=== PATIENT | female | born 1955 | race Caucasian/White ===

== ENCOUNTER → 2018-10-30 | Outpatient (CLI) | payer BC | END | disposition home or self-care (01) | LOC: CT 08:06 | PROVIDERS: ATTEND Internal Medicine Geriatric Medicine | DX: M85.88 Other specified disorders of bone density and structure, other site (principal); R22.0 Localized swelling, mass and lump, head; H70.91 Unspecified mastoiditis, right ear; M25.78 Osteophyte, vertebrae; M47.812 Spondylosis without myelopathy or radiculopathy, cervical region; M81.0 Age-related osteoporosis without current pathological fracture | CPT/HCPCS: 70486; 70490; 77080 ==

== ENCOUNTER → 2018-11-05 | Outpatient (CLI) | payer BC ==
[2018-11-05 09:07] LABS: EOSINOPHILS % 1.7 % (0.0-5.0); LYMPHOCYTES % 45.1 % (20.0-50.0); MEAN CORPUSCULAR VOLUME 90.8 fL (81.0-99.0); MEAN PLATELET VOLUME 9.4 fl (7.4-10.4); MONOCYTES % 5.5 % (2.0-8.0); NEUTROPHILS % 46.7 % (40.0-76.0); PLATELET 236 x1000/uL (130-400); RED BLOOD CELL COUNT 4.85 mill/uL (4.2-5.4); RED CELL DISTRIBUTION WIDTH 13.5 % (11.6-14.6)
[2018-11-05 09:21] LABS: CLARITY URINE CLEAR (CLEAR); COLOR URINE YELLOW (YELLOW); KETONES URINE NEGATIVE (NEGATIVE); LEUKOCYTE ESTERASE URINE NEGATIVE (NEGATIVE); NITRITE URINE NEGATIVE (NEGATIVE); OCCULT BLOOD URINE TRACE (NEGATIVE); PROTEIN URINE TRACE (NEGATIVE); SPECIFIC GRAVITY URINE 1.019 (1.005-1.030); UROBILINOGEN URINE 0.2 E.U./dL (0.2-1.0)
[2018-11-05 09:24] LABS: CHLORIDE 106 mEq/L (98-107)
[2018-11-05 09:32] LABS: TOTAL IRON BINDING CAPACITY 319 ug/dL (250-450)
[2018-11-05 09:33] LABS: LDL CHOLESTEROL 187 mg/dL (5-100)
[2018-11-05 09:34] LABS: HDL CHOLESTEROL 53 mg/dL (40-59)
[2018-11-05 10:21] LABS: VITAMIN B12 SERUM 782 pg/mL (211-911)
== END | disposition home or self-care (01) ==
LOC: LAB 08:30
DX: N39.0 Urinary tract infection, site not specified (principal)
CPT/HCPCS: 36415; 80061; 82306; 82607; 83036; 83540; 83550; 84443; 86592

== ENCOUNTER → 2019-04-22 | Outpatient (CLI) | payer BC | END | disposition home or self-care (01) | LOC: LAB 09:57 | PROVIDERS: ATTEND Internal Medicine Geriatric Medicine | DX: E78.5 Hyperlipidemia, unspecified (principal); R73.09 Other abnormal glucose | CPT/HCPCS: 36415; 80061; 83036 ==

== ENCOUNTER → 2019-06-16 | Outpatient (CLI) | payer BC | END | disposition home or self-care (01) | LOC: MAMMO 08:48 | PROVIDERS: ATTEND Internal Medicine Geriatric Medicine | DX: Z12.31 Encounter for screening mammogram for malignant neoplasm of breast (principal) | CPT/HCPCS: 77067 ==

== ENCOUNTER → 2020-10-19 | Outpatient (CLI) | payer BC | END | disposition home or self-care (01) | LOC: LAB 10:24 | PROVIDERS: ATTEND Internal Medicine Geriatric Medicine | DX: Z00.01 Encounter for general adult medical examination with abnormal findings (principal); Z13.29 Encounter for screening for other suspected endocrine disorder; I10 Essential (primary) hypertension; N39.0 Urinary tract infection, site not specified; Z20.822 Contact with and (suspected) exposure to COVID-19 | CPT/HCPCS: 87426 ==

== ENCOUNTER → 2020-10-20 | Outpatient (CLI) | payer BC | END | disposition home or self-care (01) | LOC: MAMMO 12:16 | PROVIDERS: ATTEND Internal Medicine Geriatric Medicine | DX: Z12.31 Encounter for screening mammogram for malignant neoplasm of breast (principal) | CPT/HCPCS: 76536; 77063; 77067 ==

== ENCOUNTER → 2020-11-15 | Outpatient (CLI) | payer BC ==
[2020-11-15 08:58] LABS: EOSINOPHILS % 2.1 % (0.0-5.0); HEMATOCRIT. 39.9 % (36.0-48.0); LYMPHOCYTES % 43.5 % (20.0-50.0); MEAN CORPUSCULAR HEMOGLOBIN 31.7 pg (28.0-32.0); MEAN CORPUSCULAR VOLUME 90.6 fL (81.0-99.0); MEAN PLATELET VOLUME 8.8 fl (7.4-10.4); MONOCYTES % 4.9 % (2.0-8.0); NEUTROPHILS % 48.5 % (40.0-76.0); PLATELET 272 x1000/uL (130-400); RED CELL DISTRIBUTION WIDTH 13.7 % (11.6-14.6)
[2020-11-15 09:00] LABS: CLARITY URINE CLEAR (CLEAR); COLOR URINE YELLOW (YELLOW); KETONES URINE NEGATIVE (NEGATIVE); LEUKOCYTE ESTERASE URINE NEGATIVE (NEGATIVE); NITRITE URINE NEGATIVE (NEGATIVE); OCCULT BLOOD URINE TRACE (NEGATIVE); PROTEIN URINE 2+ (NEGATIVE); SPECIFIC GRAVITY URINE 1.016 (1.005-1.030); UROBILINOGEN URINE 0.2 E.U./dL (0.2-1.0)
[2020-11-15 09:07] LABS: CHLORIDE 105 mEq/L (98-107)
[2020-11-15 09:14] LABS: LDL CHOLESTEROL 184 mg/dL (5-100); TOTAL IRON BINDING CAPACITY 336 ug/dL (250-450)
[2020-11-15 09:15] LABS: HDL CHOLESTEROL 57 mg/dL (40-59)
[2020-11-15 09:17] LABS: T4 FREE 1.13 ng/dL (0.76-1.46)
[2020-11-15 09:42] LABS: VITAMIN B12 SERUM 1077 pg/mL (211-911)
[2020-11-16 04:10] LABS: VITAMIN D 25-OH 20.9 ng/mL (30.0-100.0)
== END | disposition home or self-care (01) ==
LOC: LAB 06:47
PROVIDERS: ATTEND Internal Medicine Geriatric Medicine
DX: Z00.01 Encounter for general adult medical examination with abnormal findings (principal); I10 Essential (primary) hypertension; N39.0 Urinary tract infection, site not specified; Z13.29 Encounter for screening for other suspected endocrine disorder
CPT/HCPCS: 36415; 80053; 80061; 81003; 82306; 82607; 83036; 83540; 83550; 84436; 84439; 84443; 84479; 85025; 86592

== ENCOUNTER → 2021-05-11 | Outpatient (CLI) | payer BC ==
[2021-05-11 10:18] LABS: CHLORIDE 104 mEq/L (98-107)
[2021-05-11 10:25] LABS: LDL CHOLESTEROL 184 mg/dL (5-100)
[2021-05-11 10:26] LABS: HDL CHOLESTEROL 50 mg/dL (40-59)
== END | disposition home or self-care (01) ==
LOC: LAB 09:18
PROVIDERS: ATTEND Internal Medicine Geriatric Medicine
DX: E78.5 Hyperlipidemia, unspecified (principal); R73.03 Prediabetes
CPT/HCPCS: 36415; 80048; 80061; 83036

== ENCOUNTER → 2021-06-22 | Outpatient (CLI) | payer BC | END | disposition home or self-care (01) | LOC: CT 08:06 | PROVIDERS: ATTEND Internal Medicine Geriatric Medicine | DX: K11.8 Other diseases of salivary glands (principal); R59.0 Localized enlarged lymph nodes; D37.030 Neoplasm of uncertain behavior of the parotid salivary glands | CPT/HCPCS: 70486 ==

== ENCOUNTER → 2021-06-30 | Outpatient (CLI) | payer BC ==
[2021-06-30 14:23] LABS: BASOPHILS % 0.7 % (0.0-2.0); EOSINOPHILS % 1.6 % (0.0-5.0); HEMATOCRIT. 40.6 % (36.0-48.0); HEMOGLOBIN. 13.5 g/dL (12.0-16.0); LYMPHOCYTES % 50.4 % (20.0-50.0); MEAN CORPUSCULAR HEMOGLOBIN 30.2 pg (28.0-32.0); MEAN CORPUSCULAR VOLUME 90.6 fL (81.0-99.0); MEAN PLATELET VOLUME 8.5 fl (7.4-10.4); MONOCYTES % 6.8 % (2.0-8.0); NEUTROPHILS % 40.5 % (40.0-76.0); PLATELET 252 x1000/uL (130-400); RED BLOOD CELL COUNT 4.48 mill/uL (4.2-5.4); RED CELL DISTRIBUTION WIDTH 13.6 % (11.6-14.6)
[2021-06-30 14:34] LABS: INR 0.9; PARTIAL THROMBOPLASTIN TIME 26.2 sec (23.4-31.0); PROTHROMBIN TIME 10.2 sec (9.6-11.0)
[2021-06-30 15:00] LABS: CHLORIDE 107 mEq/L (98-107)
== END | disposition home or self-care (01) ==
LOC: LAB 13:52
PROVIDERS: ATTEND Internal Medicine Geriatric Medicine
DX: D11.0 Benign neoplasm of parotid gland (principal); I10 Essential (primary) hypertension
CPT/HCPCS: 36415; 80048; 85025

== ENCOUNTER → 2021-07-20 | Outpatient (CLI) | payer BC ==
[~2021-07-20] MED LIST: LIDOCAINE HCL 1% 20ML VIAL (Pyxis) INJ ONE; SODIUM BICARBONATE 4% (2.4MEQ) 5ML VIAL IV ONE
== END | disposition home or self-care (01) ==
LOC: RAD 11:02
PROVIDERS: ATTEND Internal Medicine Geriatric Medicine
DX: D11.0 Benign neoplasm of parotid gland (principal); I10 Essential (primary) hypertension; Z79.899 Other long term (current) drug therapy; Z20.822 Contact with and (suspected) exposure to COVID-19
CPT/HCPCS: 10005; 87426; 88172; 88173; J3490; Z7610

== ENCOUNTER → 2021-10-01 | Outpatient (CLI) | payer BC ==
[2021-10-01 08:29] LABS: CHLORIDE 107 mEq/L (98-107)
[2021-10-01 08:37] LABS: LDL CHOLESTEROL 160 mg/dL (5-100)
[2021-10-01 08:38] LABS: HDL CHOLESTEROL 56 mg/dL (40-59)
== END | disposition home or self-care (01) ==
LOC: LAB 07:56
PROVIDERS: ATTEND Internal Medicine Geriatric Medicine
DX: R73.03 Prediabetes (principal); E78.5 Hyperlipidemia, unspecified
CPT/HCPCS: 36415; 80053; 80061; 83036

== ENCOUNTER → 2022-02-24 | Outpatient (CLI) | payer BC ==
[2022-02-24 07:32] LABS: CHLORIDE 106 mEq/L (98-107)
[2022-02-24 07:39] LABS: HDL CHOLESTEROL 52 mg/dL (40-59); LDL CHOLESTEROL 109 mg/dL (5-100)
== END | disposition home or self-care (01) ==
LOC: LAB 06:37
PROVIDERS: ATTEND Internal Medicine Geriatric Medicine
DX: Z00.00 Encounter for general adult medical examination without abnormal findings (principal)
CPT/HCPCS: 36415; 80053; 80061; 83036

== ENCOUNTER → 2022-12-18 | Outpatient (CLI) | payer BC ==
[2022-12-18 07:51] LABS: CHLORIDE 107 mEq/L (98-107)
[2022-12-18 08:03] LABS: HDL CHOLESTEROL 62 mg/dL (40-59); LDL CHOLESTEROL 115 mg/dL (5-100)
== END | disposition home or self-care (01) ==
LOC: LAB 06:51
PROVIDERS: ATTEND Internal Medicine Geriatric Medicine
DX: E11.69 Type 2 diabetes mellitus with other specified complication (principal); I10 Essential (primary) hypertension
CPT/HCPCS: 36415; 80053; 80061; 83036

== ENCOUNTER → 2023-10-11 | Outpatient (CLI) | payer BC | END | disposition home or self-care (01) | LOC: MAMMO 13:14 | PROVIDERS: ATTEND Internal Medicine Geriatric Medicine | DX: Z12.31 Encounter for screening mammogram for malignant neoplasm of breast (principal); Z13.820 Encounter for screening for osteoporosis; Z00.01 Encounter for general adult medical examination with abnormal findings; N39.0 Urinary tract infection, site not specified; E11.69 Type 2 diabetes mellitus with other specified complication; M81.0 Age-related osteoporosis without current pathological fracture | CPT/HCPCS: 77063; 77067; 77080 ==

== ENCOUNTER → 2023-12-27 | Outpatient (CLI) | payer BC ==
[2023-12-27 12:21] LABS: CHLORIDE 105 mEq/L (98-107); POTASSIUM 4.1 mEq/L (3.5-5.1); SODIUM 140 mEq/L (136-145)
[2023-12-27 12:22] LABS: CALCIUM 9.8 mg/dL (8.7-10.4); CARBON DIOXIDE 30 mEq/L (21-32)
[2023-12-27 12:27] LABS: CREATININE 0.7 mg/dL (0.6-1.0); GLUCOSE 94 mg/dL (70-105); TRIGLYCERIDE 167 mg/dL (0-150); UREA NITROGEN BLOOD 12 mg/dL (9-23)
[2023-12-27 12:28] LABS: LDL CHOLESTEROL 115 mg/dL (5-100)
[2023-12-27 12:29] LABS: ALANINE AMINOTRANSFERASE 16 IU/L (10-49); ALBUMIN 4.3 g/dL (3.2-4.8); ASPARTATE AMINOTRANSFERASE 24 IU/L (<34); BILIRUBIN TOTAL 1.2 mg/dL (0.1-1.0); CHOLESTEROL 196 mg/dL (<200); HDL CHOLESTEROL 53 mg/dL (>65); PROTEIN TOTAL 8.1 g/dL (6.0-8.3)
== END | disposition home or self-care (01) ==
LOC: LAB 12-21 10:12
PROVIDERS: ATTEND Internal Medicine Geriatric Medicine
DX: E11.69 Type 2 diabetes mellitus with other specified complication (principal)
CPT/HCPCS: 36415; 80053; 80061; 83036

== ENCOUNTER → 2023-12-27 | Outpatient (CLI) | payer BC | END | disposition home or self-care (01) | LOC: PVL 09:41 | PROVIDERS: ATTEND Internal Medicine Geriatric Medicine | DX: I65.23 Occlusion and stenosis of bilateral carotid arteries (principal); I73.9 Peripheral vascular disease, unspecified; E11.9 Type 2 diabetes mellitus without complications | CPT/HCPCS: 93880; 93923 ==

== ENCOUNTER → 2024-04-05 | Outpatient (CLI) | payer BC ==
[2024-04-05 10:04] LABS: EOSINOPHILS % 2.3 % (0.0-5.0); HEMATOCRIT. 44.3 % (36.0-48.0); HEMOGLOBIN. 14.8 g/dL (12.0-16.0); LYMPHOCYTES % 38.1 % (20.0-50.0); MEAN CORPUSCULAR HEMOGLOBIN 30.6 pg (28.0-32.0); MEAN CORPUSCULAR HGB CONC 33.4 g/dL (31.0-37.0); MEAN CORPUSCULAR VOLUME 91.6 fL (81.0-99.0); MEAN PLATELET VOLUME 8.6 fl (7.4-10.4); MONOCYTES % 7.6 % (2.0-8.0); PLATELET 289 x1000/uL (130-400); RED BLOOD CELL COUNT 4.84 mill/uL (4.2-5.4); RED CELL DISTRIBUTION WIDTH 14.6 % (11.6-14.6); WHITE BLOOD COUNT 10.7 x1000/uL (4.5-11.0)
[2024-04-05 10:05] LABS: CLARITY URINE CLEAR (CLEAR); COLOR URINE YELLOW (YELLOW); GLUCOSE URINE NEGATIVE (NEGATIVE); KETONES URINE NEGATIVE (NEGATIVE); LEUKOCYTE ESTERASE URINE NEGATIVE (NEGATIVE); NITRITE URINE NEGATIVE (NEGATIVE); OCCULT BLOOD URINE 2+ (NEGATIVE); PROTEIN URINE 2+ (NEGATIVE)
[2024-04-05 10:14] LABS: CHLORIDE 104 mEq/L (98-107); POTASSIUM 4.4 mEq/L (3.5-5.1); SODIUM 139 mEq/L (136-145)
[2024-04-05 10:15] LABS: CALCIUM 9.5 mg/dL (8.7-10.4); CARBON DIOXIDE 29 mEq/L (21-32)
[2024-04-05 10:19] LABS: BACTERIA URINE 1+; SQUAMOUS EPITHELIAL CELL URINE FEW /lpf (RARE/1+); WBC URINE 0-2 /hpf (0-2); YEAST URINE NONE SEEN
[2024-04-05 10:20] LABS: CREATININE 0.9 mg/dL (0.6-1.0); GLUCOSE 107 mg/dL (70-105); TRIGLYCERIDE 147 mg/dL (0-150); UREA NITROGEN BLOOD 15 mg/dL (9-23)
[2024-04-05 10:21] LABS: ALANINE AMINOTRANSFERASE 54 IU/L (10-49); ASPARTATE AMINOTRANSFERASE 38 IU/L (<34); LDL CHOLESTEROL 186 mg/dL (5-100)
[2024-04-05 10:22] LABS: ALBUMIN 4.5 g/dL (3.2-4.8); CHOLESTEROL 250 mg/dL (<200); HDL CHOLESTEROL 56 mg/dL (>65); PROTEIN TOTAL 8.5 g/dL (6.0-8.3)
[2024-04-05 10:25] LABS: THYROID STIMULATING HORMONE 1.94 uIU/mL (0.55-4.78)
== END | disposition home or self-care (01) ==
LOC: LAB 09:18 → EDSTATUS 13:19
PROVIDERS: ATTEND Internal Medicine Geriatric Medicine
DX: I10 Essential (primary) hypertension (principal); E11.69 Type 2 diabetes mellitus with other specified complication
CPT/HCPCS: 36415; 80053; 80061; 81003; 83036; 84443; 85025; 99281

== ENCOUNTER → 2024-04-09 | Outpatient (CLI) | payer BC | END | disposition home or self-care (01) | LOC: RAD 09:41 | PROVIDERS: ATTEND Internal Medicine Geriatric Medicine | DX: M17.11 Unilateral primary osteoarthritis, right knee (principal) | CPT/HCPCS: 73560 ==

== ENCOUNTER → 2024-04-17 | Outpatient (CLI) | payer BC | END | disposition home or self-care (01) | LOC: US 09:07 | PROVIDERS: ATTEND Internal Medicine Geriatric Medicine | DX: M79.89 Other specified soft tissue disorders (principal); M79.671 Pain in right foot | CPT/HCPCS: 93970 ==

== ENCOUNTER → 2024-05-07 | Outpatient (CLI) | payer BC | END | disposition home or self-care (01) | LOC: MRI 08:57 | PROVIDERS: ATTEND Student in an Organized Health Care Education/Training Program | DX: S83.241A Other tear of medial meniscus, current injury, right knee, initial encounter (principal); S83.511A Sprain of anterior cruciate ligament of right knee, initial encounter; M17.11 Unilateral primary osteoarthritis, right knee; M71.21 Synovial cyst of popliteal space [Baker], right knee; X58.XXXA Exposure to other specified factors, initial encounter; Y93.89 Activity, other specified; Y92.89 Other specified places as the place of occurrence of the external cause; Y99.8 Other external cause status | CPT/HCPCS: 73721 ==

== ENCOUNTER → 2024-09-04 | Outpatient (CLI) | payer BC ==
[2024-09-04 09:33] LABS: CARBON DIOXIDE 28 mEq/L (21-32); CHLORIDE 105 mEq/L (98-107); POTASSIUM 4.9 mEq/L (3.5-5.1); SODIUM 139 mEq/L (136-145)
[2024-09-04 09:34] LABS: CALCIUM 9.5 mg/dL (8.7-10.4)
[2024-09-04 09:38] LABS: CREATININE 0.8 mg/dL (0.6-1.0); GLUCOSE 107 mg/dL (70-105)
[2024-09-04 09:39] LABS: LDL CHOLESTEROL 105 mg/dL (5-100); TRIGLYCERIDE 107 mg/dL (0-150); UREA NITROGEN BLOOD 12 mg/dL (9-23)
[2024-09-04 09:40] LABS: ALANINE AMINOTRANSFERASE 31 IU/L (10-49); ALBUMIN 4.3 g/dL (3.2-4.8); ASPARTATE AMINOTRANSFERASE 31 IU/L (<34); CHOLESTEROL 204 mg/dL (<200); HDL CHOLESTEROL 59 mg/dL (>65)
[2024-09-04 09:41] LABS: PROTEIN TOTAL 7.7 g/dL (6.0-8.3)
[2024-09-04 09:43] LABS: INR 0.9
[2024-09-04 09:57] LABS: BILIRUBIN TOTAL 0.9 mg/dL (0.1-1.0)
== END | disposition home or self-care (01) ==
LOC: RAD 06:48
PROVIDERS: ATTEND Internal Medicine Geriatric Medicine
DX: Z01.818 Encounter for other preprocedural examination (principal); M46.04 Spinal enthesopathy, thoracic region; K12.0 Recurrent oral aphthae
CPT/HCPCS: 36415; 71046; 80053; 80061

== ENCOUNTER → 2024-09-08 | Outpatient (CLI) | payer BC | END | disposition home or self-care (01) | LOC: CARD 06:11 | PROVIDERS: ATTEND Internal Medicine Geriatric Medicine | DX: Z01.810 Encounter for preprocedural cardiovascular examination (principal); I35.1 Nonrheumatic aortic (valve) insufficiency; I10 Essential (primary) hypertension; R60.9 Edema, unspecified | CPT/HCPCS: 93306 ==

== ENCOUNTER → 2025-01-27 | Outpatient (CLI) | payer BC ==
[2025-01-27 12:35] LABS: BASOPHILS % 0.8 % (0.0-2.0); EOSINOPHILS % 1.5 % (0.0-5.0); HEMATOCRIT. 46.1 % (36.0-48.0); HEMOGLOBIN. 15.3 g/dL (12.0-16.0); LYMPHOCYTES % 38.7 % (20.0-50.0); MEAN PLATELET VOLUME 8.9 fl (7.4-10.4); MONOCYTES % 7.1 % (2.0-8.0); NEUTROPHILS % 51.9 % (40.0-76.0); PLATELET 261 x1000/uL (130-400); RED BLOOD CELL COUNT 5.07 mill/uL (4.2-5.4); RED CELL DISTRIBUTION WIDTH 14.0 % (11.6-14.6)
[2025-01-27 12:36] LABS: CLARITY URINE CLEAR (CLEAR); COLOR URINE YELLOW (YELLOW); GLUCOSE URINE NEGATIVE (NEGATIVE); KETONES URINE NEGATIVE (NEGATIVE); LEUKOCYTE ESTERASE URINE 1+ (NEGATIVE); NITRITE URINE NEGATIVE (NEGATIVE); OCCULT BLOOD URINE 1+ (NEGATIVE); PH URINE 5.0 (4.5-8.0); PROTEIN URINE 2+ (NEGATIVE); SPECIFIC GRAVITY URINE 1.016 (1.005-1.030); UROBILINOGEN URINE 0.2 E.U./dL (0.2-1.0)
[2025-01-27 12:49] LABS: CREATININE 0.9 mg/dL (0.6-1.0)
[2025-01-27 12:50] LABS: TRIGLYCERIDE 235 mg/dL (0-150); UREA NITROGEN BLOOD 13 mg/dL (9-23)
[2025-01-27 12:51] LABS: ASPARTATE AMINOTRANSFERASE 30 IU/L (<34); COARSE GRANULAR CASTS URINE 0-5 /lpf; HYALINE CASTS URINE 0-5 /lpf; LDL CHOLESTEROL 114 mg/dL (5-100); MUCUS URINE 1+ /lpf (< = 2+); SQUAMOUS EPITHELIAL CELL URINE 1+ /lpf (RARE/1+)
[2025-01-27 12:52] LABS: BILIRUBIN TOTAL 1.1 mg/dL (0.1-1.0); PROTEIN TOTAL 8.7 g/dL (6.0-8.3)
[2025-01-27 12:54] LABS: BACTERIA URINE 1+
[2025-01-27 12:55] LABS: YEAST URINE NONE SEEN
[2025-01-27 12:56] LABS: RBC URINE 0-2 /hpf (0-2); T4 FREE 1.26 ng/dL (0.89-1.76)
[2025-01-27 13:28] LABS: HEPATITIS A AB IGM NEGATIVE (Negative); HEPATITIS B CORE AB IGM NEGATIVE (Negative)
[2025-01-27 13:29] LABS: HEPATITIS C AB NON REACTIVE (Neg) (Negative)
[2025-01-28 11:28] LABS: VITAMIN B12 SERUM 744 pg/mL (211-911)
== END | disposition home or self-care (01) ==
LOC: LAB 11:41
PROVIDERS: ATTEND Internal Medicine Geriatric Medicine
DX: E11.69 Type 2 diabetes mellitus with other specified complication (principal); E78.5 Hyperlipidemia, unspecified; Z00.01 Encounter for general adult medical examination with abnormal findings
CPT/HCPCS: 36415; 80053; 80061; 80074; 81001; 81003; 82306; 82607; 82728; 83540; 83550; 84439; 84443; 85025; 86592; 86705; 86709; 87340

== ENCOUNTER → 2025-01-28 | Outpatient (CLI) | payer BC | END | disposition home or self-care (01) | LOC: MAMMO 10:16 | PROVIDERS: ATTEND Internal Medicine Geriatric Medicine | DX: Z12.31 Encounter for screening mammogram for malignant neoplasm of breast (principal); Z13.820 Encounter for screening for osteoporosis; M81.0 Age-related osteoporosis without current pathological fracture; R92.323 Mammographic fibroglandular density, bilateral breasts | CPT/HCPCS: 77063; 77067; 77080 ==